=== PATIENT | female | born 1985 | race Caucasian/White ===

== ENCOUNTER 2017-10-20 01:05 | Emergency (ER) | payer OTHER ==
[2017-10-20 02:13] LABS: BASOPHIL % 0.9 % (0-2); PLATELET COUNT 207 x10^3mcL (130-400); RED CELL DISTRIBUTION WIDTH 13.5 % (11.5-14.5)
[2017-10-20 02:16] LABS: CALCIUM 8.4 mg/dL (8.5-10.1); CARBON DIOXIDE 28.7 mmol/L (21-32); CHLORIDE SERUM 109 mmol/L (98-107); CREATININE SERUM 0.6 mg/dL (0.6-1.0); GFR1 > 60 mL/min; GLUCOSE SERUM 109 mg/dL (74-106); SODIUM SERUM 147 mmol/L (136-145)
[2017-10-20 04:01] VITALS: BP 115/71
== END 2017-10-20 04:01 | disposition other institution (70) ==
LOC: ED 01:05
PROVIDERS: Emergency Medicine
DX: S09.90XA Unspecified injury of head, initial encounter (principal); Y08.89XA Assault by other specified means, initial encounter; Y93.89 Activity, other specified; Y92.89 Other specified places as the place of occurrence of the external cause; Y99.8 Other external cause status
CPT/HCPCS: J7030; Q9967

== ENCOUNTER 2017-10-20 01:05 | Emergency (ER) | payer OTHER | END 2017-10-20 04:01 | disposition other institution (70) | LOC: ED 01:05 | DX: Z02.89 Encounter for other administrative examinations (principal) ==

== ENCOUNTER 2018-05-04 15:25 | Emergency (ER) | payer OTHER ==
[~2018-05-04] VITALS: Ht 152.4 cm; Wt 81.6 kg
[2018-05-04 15:33] VITALS: Ht 152.4 cm; Wt 81.6 kg
[2018-05-04 18:19] VITALS: BP 134/91
== END 2018-05-04 18:19 | disposition home or self-care (01) ==
LOC: ED 15:25
DX: R19.7 Diarrhea, unspecified (principal); E86.0 Dehydration; R10.84 Generalized abdominal pain; R50.9 Fever, unspecified; R51 Headache; M54.2 Cervicalgia
CPT/HCPCS: J1885

== ENCOUNTER 2018-10-05 18:51 | Emergency (ER) | payer OTHER ==
[~2018-10-05] VITALS: Ht 152.4 cm; Wt 84.5 kg
[2018-10-05 19:36] LABS: BASOPHIL % 0.3 % (0-2); PLATELET COUNT 248 x10^3mcL (130-400); RED CELL DISTRIBUTION WIDTH 14.3 % (11.5-14.5)
[2018-10-05 19:44] LABS: CALCIUM 9.2 mg/dL (8.5-10.1); CARBON DIOXIDE 27.6 mmol/L (21-32); CHLORIDE SERUM 101 mmol/L (98-107); CREATININE SERUM 0.8 mg/dL (0.6-1.0); GFR1 > 60 mL/min; GLUCOSE SERUM 110 mg/dL (74-106); POTASSIUM SERUM 3.7 mmol/L (3.5-5.1); SODIUM SERUM 138 mmol/L (136-145)
[2018-10-05 19:48] LABS: ALBUMIN 3.9 g/dL (3.4-5.0); ALKALINE PHOSPHATASE 100 U/L (46-116); ALT/SGPT 30 U/L (14-59); AST/SGOT 21 U/L (15-37)
[2018-10-05 19:52] LABS: TOTAL PROTEIN, SERUM 8.8 g/dL (6.4-8.2)
[2018-10-05 20:16] LABS: BILIRUBIN TOTAL 0.18 mg/dL (0.20-1.00)
[2018-10-05 22:08] VITALS: BP 103/70
== END 2018-10-05 22:08 | disposition home or self-care (01) ==
LOC: ED 18:51
PROVIDERS: Emergency Medicine
DX: J10.1 Influenza due to other identified influenza virus with other respiratory manifestations (principal); Z90.49 Acquired absence of other specified parts of digestive tract
CPT/HCPCS: 87804; J1885; J2270; J2405; J7030

== ENCOUNTER 2020-04-09 19:00 | Emergency (ER) | payer BC, OTHER ==
[~2020-04-09] VITALS: Ht 152.4 cm; Wt 72.6 kg
[2020-04-09 19:02] VITALS: BP 117/77; Ht 152.4 cm; Wt 72.6 kg
== END 2020-04-09 19:44 | disposition home or self-care (01) ==
LOC: ED 19:00
DX: R07.89 Other chest pain (principal); R06.00 Dyspnea, unspecified; R05 Cough